=== PATIENT | female | born 1965 | race Caucasian/White ===

== ENCOUNTER 2017-09-12 13:04 | Emergency (ER) | payer OTHER ==
[~2017-09-12] VITALS: Ht 177.8 cm; Wt 85.0 kg
[2017-09-12 13:09] VITALS: BP 152/95; PULSE 78; RESP 16; TEMP 98.3; O2SAT 100
[2017-09-12 13:38] VITALS: BP 120/71; PULSE 70; RESP 16; RESP 18; O2SAT 98
--- NOTE | 2017-09-12 13:40 | PD ---
HPI Chief Complaint: Skin Problem Time Seen by Provider: 13:19 Travel History International Travel<30 days: No Contact w/Intl Traveler<30days: No Traveled to known affect area: No History of Present Illness HPI Patient comes emergency department complaining of worsening left hip pain ongoing for 3 weeks. Patient she has had swollen cyst/lumps around her left hip /thigh that began 3 weeks ago. Patient reports that she was on doxycycline initially however was not getting better and was switch to Cipro. Patient reports for the past couple days has some discoloration distal left leg. Patient reports that when she was first diagnosed with CVID her foot was black but has since improved. Patient denies any fevers but reports having chills and hot flashes. Describes pain as a pressure sensation that is radiating across her abdomen and up left side of her abdomen. Patient reports she is taking her pain medication as prescribed but continues to have pain. Patient is concerned as it is not getting any better. Denies any loss change in bowel or bladder. Severity mild to moderate. PFSH Social History Tobacco Use: Yes Substance Use: No Allergies-Medications (Allergen,Severity, Reaction): Coded Allergies: gabapentin (Verified Allergy, Severe, seizures, 09/12/17) ketorolac (Verified Allergy, Severe, seizures, 09/12/17) Reported Meds & Prescriptions Reported Meds & Active Scripts Active Clindamycin (Clindamycin HCl) 300 Mg Cap 300 Mg PO Q6H 10 Days Reported Cipro (Ciprofloxacin HCl) Unknown Strength Tab 1 Tab PO BID Hizentra Inj (Immune Globulin (Human) Subcut Inj) 10 Gram/50 Ml (20 %) Inj 9 Gm DIRECTED Stromectol (Ivermectin) 3 Mg Tab 7 Tab PO DIRECTED 7 TABS DAILY FOR 2 DAYS THEN REPEAT IN 2 WEEKS EVERY 90 DAYS [place] (Hydrocodone-Acetaminophen) 10-325 Mg Tab 1-2 Tab PO Q6H PRN Morphine ER (Morphine Sulfate) 200 Mg Tab 400 Mg PO BID Duragesic Patch 72 HR (Fentanyl) 50 Mcg/Hr Patch 50 Mcg T-DERMAL Q72H Remove old patch when new one placed. Celebrex (Celecoxib) 200 Mg Cap 200 Mg PO BID Review of Systems Except as stated in HPI: all other systems reviewed are Neg Physical Exam Narrative GENERAL: Well-developed, overly nourished, in no acute distress, and non-ill appearing. SKIN: Focused skin assessment warm and dry. Patient has small tender lumps noted over left lateral thigh and hip patient reports tender to palpation. There is no fluctuation, induration, or crepitus. Suspicious for possible lipomas. Mild discoloration over the anterior lower leg patient reports is tender to palpation. No crepitus induration, or fluctuation. HEAD: Atraumatic. Normocephalic. EYES: Pupils equal and round. EOMI. No scleral icterus. No injection or drainage. ENT: No nasal bleeding or discharge. Mucous membranes pink and moist. NECK: Trachea midline. Supple. No nuclear rigidity. CARDIOVASCULAR: Regular rate and rhythm. No murmur appreciated. Dorsal pulses 2+, intact, and equal bilaterally. Capillary refill less than 2 seconds. RESPIRATORY: No accessory muscle use. No respiratory distress. Clear to auscultation. Breath sounds equal bilaterally. GASTROINTESTINAL: Abdomen soft, nondistended, and no guarding. Hepatic and splenic margins not palpable. Normal bowel sounds x4. No pulsatile mass. Patient reports tenderness palpation left lower quadrant of the abdomen. MUSCULOSKELETAL: No obvious deformities. No clubbing. No cyanosis. No edema. Full range of motion. NEUROLOGICAL: Awake and alert. No obvious cranial nerve deficits. Motor grossly within normal limits. Normal speech. PSYCHIATRIC: Appropriate mood and affect; insight and judgment normal. Data Data Last Documented VS Vital Signs Date Time Temp Pulse Resp B/P (MAP) Pulse Ox O2 Delivery O2 Flow Rate FiO2 09/12/17 17:08 74 18 124/72 (89) 98 09/12/17 13:38 Room Air 09/12/17 13:09 98.3 Orders Orders Complete Blood Count With Diff (09/12/17 13:31) Comprehensive Metabolic Panel (09/12/17 13:31) Lipase (09/12/17 13:31) Prothrombin Time / Inr (Pt) (09/12/17 13:31) Act Partial Throm Time (Ptt) (09/12/17 13:31) Urinalysis - C+S If Indicated (09/12/17 13:31) Ct Abd/Pel W Iv Contrast(Rout) (09/12/17 13:31) Iv Access Insert/Monitor (09/12/17 13:31) Ecg Monitoring (09/12/17 13:31) Oximetry (09/12/17 13:31) Iohexol 350 Inj (Omnipaque 350 Inj) (09/12/17 15:48) Ed Discharge Order (09/12/17 16:51) Clindamycin (Cleocin) (09/12/17 17:00) Ondansetron Inj (Zofran Inj) (09/12/17 17:00) Ondansetron Inj (Zofran Inj) (09/12/17 16:58) Labs Laboratory Tests Test 09/12/17 14:00 09/12/17 14:10 White Blood Count 6.3 TH/MM3 Red Blood Count 4.33 MIL/MM3 Hemoglobin 14.4 GM/DL Hematocrit 41.8 % Mean Corpuscular Volume 96.6 FL Mean Corpuscular Hemoglobin 33.3 PG Mean Corpuscular Hemoglobin Concent 34.5 % Red Cell Distribution Width 13.7 % Platelet Count 209 TH/MM3 Mean Platelet Volume 8.1 FL Neutrophils (%) (Auto) 43.9 % Lymphocytes (%) (Auto) 44.4 % Monocytes (%) (Auto) 8.0 % Eosinophils (%) (Auto) 2.7 % Basophils (%) (Auto) 1.0 % Neutrophils # (Auto) 2.7 TH/MM3 Lymphocytes # (Auto) 2.8 TH/MM3 Monocytes # (Auto) 0.5 TH/MM3 Eosinophils # (Auto) 0.2 TH/MM3 Basophils # (Auto) 0.1 TH/MM3 CBC Comment DIFF FINAL Differential Comment Prothrombin Time 10.5 SEC Prothromb Time International Ratio 1.0 RATIO Activated Partial Thromboplast Time 25.9 SEC Blood Urea Nitrogen 12 MG/DL Creatinine 0.57 MG/DL Random Glucose 85 MG/DL Total Protein 6.4 GM/DL Albumin 3.2 GM/DL Calcium Level 8.4 MG/DL Alkaline Phosphatase 66 U/L Aspartate Amino Transf (AST/SGOT) 29 U/L Alanine Aminotransferase (ALT/SGPT) 25 U/L Total Bilirubin 0.2 MG/DL Sodium Level 141 MEQ/L Potassium Level 4.1 MEQ/L Chloride Level 111 MEQ/L Carbon Dioxide Level 23.2 MEQ/L Anion Gap 7 MEQ/L Estimat Glomerular Filtration Rate 112 ML/MIN Lipase 112 U/L Urine Color YELLOW Urine Turbidity HAZY Urine pH 5.5 Urine Specific [place] 1.014 Urine Protein NEG mg/dL Urine Glucose (UA) NEG mg/dL Urine Ketones NEG mg/dL Urine Occult Blood NEG Urine Nitrite NEG Urine Bilirubin NEG Urine Urobilinogen LESS THAN 2.0 MG/DL Urine Leukocyte Esterase NEG Urine RBC LESS THAN 1 /hpf Urine WBC 1 /hpf Urine Squamous Epithelial Cells 15 /hpf Urine Bacteria RARE /hpf Urine Hyaline Casts 5 /lpf Urine Mucus FEW /lpf Microscopic Urinalysis Comment CULT NOT INDICATED MDM Medical Decision Making Medical Screen Exam Complete: Yes Emergency Medical Condition: Yes Interpretation(s) Last Impressions Abdomen/Pelvis CT 09/12/17 1331 Signed Impressions: Service Date/Time: Tuesday, September 12, 2017 15:34 - CONCLUSION: 1. Nonspecific gas pattern with scattered air-fluid levels in nondistended loops of small bowel. 2. Status post cholecystectomy. 3. Bilateral femoral head prostheses. 4. No other evidence of acute process. Jakob Mathias MD Differential Diagnosis SBO, metabolic disturbance, UTI, abscess, cellulitis, avascular necrosis, metastatic disease Narrative Course Patient in no obvious distress upon re-evaluation. All pertinent laboratory/ Radiology result(s) discussed with patient/family. Discussed patient with Dr. Cuellar prior discharge, who saw and evaluated the patient and is in agreement with plan of care and disposition. Recommend changing patient's antibiotics to clindamycin. Any questions/concerns in reference to patient diagnosis/condition discussed and clarified prior to patient's discharge. Reinforced sheer importance of close follow up with patient's primary physician or primary care clinic. Instructed patient to return to ED immediately, if symptoms return/ worsen. Patient showed understanding of above instructions. Further instructions and recommendations were detailed in discharge paperwork. Patient ambulated without difficulty out of ED at discharge. Diagnosis Primary Impression: Painful skin lesion Patient Instructions: General Instructions Additional Instructions: Follow-up with your primary care physician tomorrow for reevaluation. Take all medication as prescribed. Stop taking ciprofloxacin. Take [id number] probiotics. Follow instructions on the packaging. Return to the emergency department if symptoms get worse. Med/Other Pt SpecificInfo: Prescription(s) given Scripts Clindamycin (Clindamycin) 300 Mg Cap 300 MG PO Q6H for Infection for 10 Days, #40 CAP 0 Refills Prov: Charlie Cuellar MD 09/12/17 Disposition: 01 DISCHARGE HOME Condition: Stable Fabio Beltre Sep 12, 2017 13:40
[2017-09-12 14:32] LABS: AUTOMATED NEUTROPHIL # 2.7 TH/MM3 (1.8-7.7); BASOPHIL # 0.1 TH/MM3 (0-0.2); EOSINOPHIL # 0.2 TH/MM3 (0-0.4); EOSINOPHIL % 2.7 % (0.0-4.0); HEMATOCRIT 41.8 % (35.0-46.0); HEMOGLOBIN 14.4 GM/DL (11.6-15.3); LYMPH % 44.4 % (9.0-44.0); LYMPHOCYTE # 2.8 TH/MM3 (1.0-4.8); MEAN CELL VOLUME 96.6 FL (80.0-100.0); MEAN CORPUSCULAR HEMOGLOBIN 33.3 PG (27.0-34.0); MEAN CORPUSCULAR HGB CONC 34.5 % (32.0-36.0); MEAN PLATELET VOLUME 8.1 FL (7.0-11.0); MONOCYTE # 0.5 TH/MM3 (0-0.9); NEUT % 43.9 % (16.0-70.0); PLATELET COUNT 209 TH/MM3 (150-450); RED BLOOD COUNT 4.33 MIL/MM3 (4.00-5.30); RED CELL DISTRIBUTION WIDTH 13.7 % (11.6-17.2); WHITE BLOOD COUNT 6.3 TH/MM3 (4.0-11.0)
[2017-09-12 14:41] LABS: PROTHROMBIN TIME - PATIENT 10.5 SEC (9.8-11.6)
[2017-09-12 14:55] LABS: ALBUMIN 3.2 GM/DL (3.4-5.0); ALT (GPT) 25 U/L (10-53); AST (GOT) 29 U/L (15-37); BICARBONATE 23.2 MEQ/L (21.0-32.0); BLOOD UREA NITROGEN 12 MG/DL (7-18); CALCIUM 8.4 MG/DL (8.5-10.1); CHLORIDE 111 MEQ/L (98-107); CREATININE 0.57 MG/DL (0.50-1.00); GLOMERULAR FILTRATION RATE 112 ML/MIN (>89); GLUCOSE,RANDOM 85 MG/DL (74-106); SODIUM (NA) 141 MEQ/L (136-145)
[2017-09-12 14:57] LABS: ALKALINE PHOSPHATASE 66 U/L (45-117); TOTAL BILIRUBIN ADULT 0.2 MG/DL (0.2-1.0); TOTAL PROTEIN 6.4 GM/DL (6.4-8.2)
[2017-09-12] MEDS ORDERED: CIPR250T52 PO (14:58)
[2017-09-12] MEDS ORDERED: STRO3TAB PO (14:58)
[2017-09-12] MEDS ORDERED: HYDR-3366 PO (14:58)
[2017-09-12] MEDS ORDERED: CELE200C PO (14:58)
[2017-09-12] MEDS ORDERED: FENT50T T-DERMAL (14:58)
[2017-09-12] MEDS ORDERED: [UNRECOGNIZED DRUG - CODE] (14:58)
[2017-09-12] MEDS ORDERED: [UNRECOGNIZED DRUG - CODE] PO (14:58)
[2017-09-12 15:21] LABS: BACTERIA, URINE RARE /hpf; BILIRUBIN, URINE NEG (NEG); BLOOD, URINE NEG (NEG); GLUCOSE,URINE NEG (NEG); HYALINE CAST, URINE 5 /lpf (RARE); KETONE, URINE NEG (NEG); MUCUS URINE FEW /lpf (OCC); NITRITE,URINE NEG (NEG); PH, URINE 5.5 (5.0-8.5); SQUAMOUS EPITHELIAL CELL URINE 15 /hpf (0-5); URINE COLOR YELLOW (YELLW/STRAW); URINE LEUKOCYTE ESTERASE NEG (NEG)
[2017-09-12] MEDS ORDERED: IOHEXOL 350 MG/ML 10 ML VIAL (for RAD DIAG) IVCONTRAST ONE (15:48)
--- NOTE | 2017-09-12 16:12 | RADRPT ---
EXAM DATE/TIME: 09/12/2017 15:34 [facility] COMPARISON: No previous studies available for comparison. INDICATIONS : Left hip pain and swollen lymphnodes. IV CONTRAST: 75 cc Omnipaque 350 (iohexol) IV ORAL CONTRAST: No oral contrast ingested. RADIATION DOSE: 12.28 CTDIvol (mGy) MEDICAL HISTORY : None SURGICAL HISTORY : Gastric bypass. Cholecystectomy.Tubal ligation.Oleg hips, patients states back surgery with reversal. ENCOUNTER: Initial ACUITY: 3 weeks PAIN SCALE: 6/10 LOCATION: Left pelvis TECHNIQUE: Volumetric scanning of the abdomen and pelvis was performed. Using automated exposure control and ad justment of the mA and/or kV according to patient size, radiation dose was kept as low as reasonably achievable to obtain optimal diagnostic quality images. DICOM format image data is available electro nically for review and comparison. FINDINGS: LOWER LUNGS: Prominent pleural-based blebs are seen posteriorly in the lower lobes. There is no evidence of acute airspace disease. LIVER: Homogeneous density without lesion. There is no dilation of the biliary tree. Status post cholecyste ctomy. SPLEEN: Normal size without lesion. PANCREAS: Within normal limits. KIDNEYS: Normal in size and shape. There is no mass, stone or hydronephrosis. ADRENAL GLANDS: Within normal limits. VASCULAR: There is no aortic aneurysm. BOWEL/MESENTERY: Nonspecific gas pattern is noted with scattered air-fluid levels throughout the small intestinal trac t. There is no evidence of pathologic distention. Postsurgical changes are identified in the left upp er quadrant along the stomach. Intestinal tract is otherwise unremarkable. There is no evidence of il eus. There are no acute inflammatory changes, extra intestinal fluid collections or free air. ABDOMINAL WALL: Within normal limits. RETROPERITONEUM: There is no lymphadenopathy. BLADDER: No wall thickening or mass. REPRODUCTIVE: Within normal limits. INGUINAL: There is no lymphadenopathy or hernia. MUSCULOSKELETAL: Bilateral femoral head prostheses are noted. CONCLUSION: 1. Nonspecific gas pattern with scattered air-fluid levels in nondistended loops of small bowel. 2. Status post cholecystectomy. 3. Bilateral femoral head prostheses. 4. No other evidence of acute process. Jakob Mathias MD on September 12, 2017 at 16:05 Board Certified Radiologist. This report was verified electronically.
[2017-09-12] MEDS ORDERED: CLIN300C5 PO (16:54)
[2017-09-12] MEDS ORDERED: ONDANSETRON HCL 4 MG/2 ML VIAL ONE (16:58)
[2017-09-12] MEDS ORDERED: CLINDAMYCIN 150 MG CAP PO ONE (17:00)
[2017-09-12] MEDS ORDERED: ONDANSETRON HCL 4 MG/2 ML VIAL IV PUSH ONE (17:00)
[2017-09-12 17:08] VITALS: BP 124/72
== END 2017-09-12 19:21 | disposition home or self-care (01) ==
LOC: NEPE 13:04
DX: M25.552 Pain in left hip (principal); L98.9 Disorder of the skin and subcutaneous tissue, unspecified; R10.9 Unspecified abdominal pain; Z72.0 Tobacco use; Z88.8 Allergy status to other drugs, medicaments and biological substances; Z79.899 Other long term (current) drug therapy
CPT/HCPCS: 74177; 80053; 81001; 83690; 85025; 85610; 85730; 96374; 99284; J2405; Q9967